=== PATIENT | male | born 1975 ===

== ENCOUNTER 2017-09-17 23:45 | Emergency (ER) | payer BC, OTHER ==
--- NOTE | 2017-09-18 00:01 | EDM.PDOC ---
ED HPI GENERAL MEDICAL PROBLEM - General Chief Complaint: General Stated Complaint: C02 EXPOSURE Time Seen by Provider: 09/18/17 00:01 Source of Information: Reports: Patient - History of Present Illness INITIAL COMMENTS - FREE TEXT/NARRATIVE: HISTORY AND PHYSICAL: History of present illness: [Patient had a carbon monoxide exposure at 3 PM today between 3 and 5 he was at work and apparently some heaters were giving off significant carbon monoxide levels he was alerted of this and was removed from the site. He did have some headache earlier today as well as nausea this is improved a presents for medical screening Currently no fever nausea vomiting diarrhea constipation chest pain shortness breath headache dizziness palpitation no bowel or urine symptoms ] Patient has smoking history and normal past but has not smoked since January Review of systems: As per history of present illness and below otherwise all systems reviewed and negative. Past medical history: As per history of present illness and as reviewed below otherwise noncontributory. Surgical history: As per history of present illness and as reviewed below otherwise noncontributory. Social history: No reported history of drug or alcohol abuse. Family history: As per history of present illness and as reviewed below otherwise noncontributory. Physical exam: HEENT: Atraumatic, normocephalic, pupils reactive, negative for conjunctival pallor or scleral icterus, mucous membranes moist, throat clear, neck supple, nontender, trachea midline. Lungs: Clear to auscultation, breath sounds equal bilaterally, chest nontender. Heart: S1S2, regular, negative for clicks, rubs, or JVD. Abdomen: Soft, nondistended, nontender. Negative for masses or hepatosplenomegaly. Negative for costovertebral tenderness. Pelvis: Stable nontender. Genitourinary: Deferred. Rectal: Deferred. Extremities: Atraumatic, negative for cords or calf pain. Neurovascular unremarkable. Neuro: Awake, alert, oriented. Cranial nerves II through XII unremarkable. Cerebellum unremarkable. Motor and sensory unremarkable throughout. Exam nonfocal. Diagnostics: [CBC CMP carbon monoxide, nursing notes states carbon dioxide this is incorrect it is clarified with patient it was a carbon monoxide exposure Poison control was contacted they recommended cardiac rule out as well ] Therapeutics: [Oxygen therapy initiated on arrival ] Impression: [Medical screening exam Carbon monoxide level VII on par with a pack per day smoker/nontoxic levels] Definitive disposition and diagnosis as appropriate pending reevaluation and review of above. head Pain Score (Numeric/FACES): 3 - Related Data Allergies Allergy/AdvReac Type Severity Reaction Status Date / Time No Known Allergies Allergy Verified 09/18/17 00:07 Home Meds: Home Meds Aspirin 81 mg PO DAILY 09/18/17 [History] LORazepam 0.5 mg PO BID 09/18/17 [History] Sertraline [Zoloft] 0 mg PO DAILY 09/18/17 [History] Ticagrelor [Brilinta] 0 mg PO DAILY 09/18/17 [History] amLODIPine [Norvasc] 0 mg PO DAILY 09/18/17 [History] atorvaSTATin [Lipitor] 0 mg PO BEDTIME 09/18/17 [History] ED ROS GENERAL - Review of Systems Review Of Systems: ROS reveals no pertinent complaints other than HPI. ED EXAM, GENERAL - Physical Exam Exam: See Below Course - Vital Signs Last Recorded V/S: Last Vital Signs Temp 99 F 09/17/17 23:45 Pulse 73 09/17/17 23:45 Resp 18 09/17/17 23:45 BP 146/92 H 09/17/17 23:45 Pulse Ox 95 09/17/17 23:45 - Orders/Labs/Meds Orders: Active Orders 24 hr Category Date Time Status EKG Documentation Completion [RC] STAT Care 09/18/17 00:05 Active Chest 2V [CR] Stat Exams 09/18/17 00:17 Taken Labs: Laboratory Tests 09/18/17 09/18/17 09/18/17 Range/Units 00:33 00:33 00:33 WBC 6.45 (4.0-11.0) K/uL RBC 4.71 (4.50-5.90) M/uL Hgb 14.7 (13.0-17.0) g/dL Hct 42.5 (38.0-50.0) % MCV 90.2 (80.0-98.0) fL MCH 31.2 (27.0-32.0) pg MCHC 34.6 (31.0-37.0) g/dL RDW Std Deviation 42.0 (28.0-62.0) fl RDW Coeff of [place] 13 (11.0-15.0) % Plt Count 265 (150-400) K/uL MPV 9.50 (7.40-12.00) fL Neut % (Auto) 58.2 (48.0-80.0) % Lymph % (Auto) 29.8 (16.0-40.0) % [place] % (Auto) 8.4 (0.0-15.0) % Eos % (Auto) 3.1 (0.0-7.0) % Baso % (Auto) 0.5 (0.0-1.5) % Neut # (Auto) 3.8 (1.4-5.7) K/uL Lymph # (Auto) 1.9 (0.6-2.4) K/uL [place] # (Auto) 0.5 (0.0-0.8) K/uL Eos # (Auto) 0.2 (0.0-0.7) K/uL Baso # (Auto) 0.0 (0.0-0.1) K/uL Nucleated RBC % 0.0 /100WBC Nucleated RBCs # 0 K/uL ABG Carboxyhemoglobin 7.0 (0-15) % Sodium 142 (136-148) mmol/L Potassium 3.8 (3.5-5.1) mmol/L Chloride 106 (98-107) mmol/L Carbon Dioxide 27.4 (21.0-32.0) mmol/L BUN 23 H (7.0-18.0) mg/dL Creatinine 1.2 (0.8-1.3) mg/dL Est Cr Clr Drug Dosing 104.73 mL/min Estimated GFR (MDRD) > 60.0 ml/min Glucose 90 (74-106) mg/dL Calcium 8.8 (8.5-10.1) mg/dL Total Bilirubin 0.3 (0.2-1.0) mg/dL AST 20 (15-37) U/L ALT 37 (14-63) U/L Alkaline Phosphatase 80 (46-116) U/L Troponin I < 0.050 (0.000-0.056) ng/mL Total Protein 7.2 (6.4-8.2) g/dL Albumin 4.0 (3.4-5.0) g/dL Globulin 3.2 (2.0-3.5) g/dL Albumin/Globulin Ratio 1.3 (1.3-2.8) Departure - Departure Time of Disposition: 01:25 Disposition: Home, Self-Care 01 Condition: Good Clinical Impression: Encounter for medical screening examination - Discharge Information Referrals: Kylee Avendano PA [Primary Care Provider] - Forms: ED Department Discharge Additional Instructions: The following information is given to patients seen in the emergency department who are being discharged to home. This information is to outline your options for follow-up care. We provide all patients seen in our emergency department with a follow-up referral. The need for follow-up, as well as the timing and circumstances, are variable depending upon the specifics of your emergency department visit. If you don't have a primary care physician on staff, we will provide you with a referral. We always advise you to contact your personal physician following an emergency department visit to inform them of the circumstance of the visit and for follow-up with them and/or the need for any referrals to a consulting specialist. The emergency department will also refer you to a specialist when appropriate. This referral assures that you have the opportunity for follow-up care with a specialist. All of these measure are taken in an effort to provide you with optimal care, which includes your follow-up. Under all circumstances we always encourage you to contact your private physician who remains a resource for coordinating your care. When calling for follow-up care, please make the office aware that this follow-up is from your recent emergency room visit. If for any reason you are refused follow-up, please contact the [facility] emergency department at and asked to speak to the emergency department charge nurse. - My Orders Last 24 Hours: My Active Orders 09/18/17 00:05 EKG Documentation Completion [RC] STAT 09/18/17 00:17 Chest 2V [CR] Stat - Assessment/Plan Last 24 Hours: My Active Orders 09/18/17 00:05 EKG Documentation Completion [RC] STAT 09/18/17 00:17 Chest 2V [CR] Stat
[2017-09-18 01:11] LABS: CHLORIDE,CL 106 mmol/L (98-107); SODIUM,NA 142 mmol/L (136-148)
--- NOTE | 2017-09-18 10:09 | CR ---
EXAM DATE: 09/17/17 PATIENT'S AGE: 42 Patient: JOYCE KENNEDY Facility: [place], [place] Site . Site : [id number] Study: XRay Chest [id number] 12:50:59 AM Ordering Physician: Burton Narayan Final Report: INDICATION: CO2 EXPOSURE TECHNIQUE: Chest 2 views. COMPARISON: None. FINDINGS: Cardiovascular and mediastinum: Heart size and vasculature are normal in caliber and appearance. Mediastinum is within normal limits. Lungs and pleural spaces: Lungs are clear. No sign of infiltrate or mass. No sign of pleural effusion. No pneumothorax. Bones and soft tissues: No significant findings. IMPRESSION: Unremarkable chest. Dictated by: Silvino Pennington MD @ 09/18/2017 00:52:09 (Electronic Signature) Report Signed by Proxy. [facility]
== END 2017-09-18 01:37 | disposition home or self-care (01) ==
LOC: MW.ED 23:45
DX: Z57.5 Occupational exposure to toxic agents in other industries (principal); Z79.82 Long term (current) use of aspirin; Z79.899 Other long term (current) drug therapy
CPT/HCPCS: 36415; 71046; 71046-26; 80053; 82375; 84484; 85025; 93005; 99283; 99284-25